=== PATIENT | male | born 1955 | race Caucasian/White ===

== ENCOUNTER → 2019-09-16 | Outpatient (CLI) | payer OTHER ==
--- NOTE | 2019-09-16 10:10 | Diagnostic Imaging Report ---
INDICATION: Right knee pain. Time of exam: 9:43 AM 3 views of the right knee were obtained. Alignment is normal. Joint spaces are well maintained. Articular surfaces are smooth. No fracture, dislocation or effusion is seen. Oblique view is limited due to technical purposes. IMPRESSION: No acute abnormality detected. Dictated by: Dictated on workstation # [id number]
== END ==
LOC: RAD FS 09:34
PROVIDERS: ATTEND Nurse Practitioner
DX: M25.561 Pain in right knee (principal)
CPT/HCPCS: 73562